=== PATIENT | female | born 1995 | race Caucasian/White ===

== ENCOUNTER 2020-08-10 08:31 | Outpatient (CLI) | payer OTHER ==
[2020-08-11 02:13] LABS: SARS-CoV-2 MS2 Positive; SARS-CoV-2 N Gene Negative; SARS-CoV-2 S Gene Negative; SARS-CoV-2 by NAA Not Detected (NotDetected); SARS-CoV-2 orf1ab Negative
== END 2020-08-10 08:32 | disposition home or self-care (01) ==
LOC: LABBT 08:31
PROVIDERS: ATTEND Urology
DX: Z01.812 Encounter for preprocedural laboratory examination (principal); Z20.828 Contact with and (suspected) exposure to other viral communicable diseases
CPT/HCPCS: 87635; U0003

== ENCOUNTER 2020-08-15 06:31 | Day surgery (SDC) | payer OTHER ==
[2020-08-14 10:29] VITALS: BMI 35.6
[2020-08-15] MEDS ORDERED: Levofloxacin 500 mg/D5W 100 ml Premix Bag ONE (07:39)
[2020-08-15] MEDS ORDERED: Iothalamate Meglumine 60% 50 ML VIAL FS ONE (08:00)
[2020-08-15] MEDS ORDERED: Midazolam HCl 2 mg/2 ml Vial ONE (09:06)
[2020-08-15] MEDS ORDERED: Fentanyl 100 MCG/2 ML VIAL ONE (09:13)
[2020-08-15] MEDS ORDERED: Ketorolac Tromethamine 30 MG/ML VIAL ONE (10:30)
[2020-08-15] MEDS ORDERED: Oxybutynin 5 MG TAB ONE (10:30)
--- NOTE | 2020-08-15 10:41 | RAD ---
EXAM: XR IVP Retrograde PROVIDED CLINICAL HISTORY: Right ureteral stent placement COMPARISON: None FINDINGS: Single spot fluoroscopic image of the abdomen is submitted, not labeled with respect to side. A urete ral stent is noted overlying presumably the right abdomen and pelvis, the proximal coil of which overlies the right renal pelvis and distal coil of which overlies expected location of the urinary bl adder. IMPRESSION: As above.
[2020-08-15] MEDS ORDERED: Lidocaine 1% PF 5 ML VIAL ONE (11:02)
[2020-08-15] MEDS ORDERED: Ondansetron PF 4 MG/2 ML Vial ONE (11:02)
[2020-08-15] MEDS ORDERED: Dexamethasone 20 MG/5 ML VIAL ONE (11:02)
[2020-08-15] MEDS ORDERED: PROPOFOL 200 MG/20 ML VIAL ONE (11:02)
[2020-08-15] MEDS ORDERED: PHENYLEPHRINE-NS 100 MCG/ML 10 ML SYRINGE ONE (11:02)
[2020-08-15] MEDS ORDERED: HYDROcodone/Acetaminophen 5/325 mg Tablet ONE (11:03)
--- NOTE | 2020-08-15 11:59 | OP ---
DATE OF PROCEDURE: 08/15/2020 PREOPERATIVE DIAGNOSES: Right ureteral and renal stones. POSTOPERATIVE DIAGNOSES: Right ureteral and renal stones. PROCEDURES PERFORMED: Right ureteroscopy with manipulation of right ureteral stone, ureteroscopy with laser lithotripsy of renal stone, basket extraction of stone fragments, retrograde pyelogram, intraoperative interpretation of radiologic imaging, and 4.8 x 26 double-J ureteral stent placement. ANESTHESIA: General. COMPLICATIONS: None. ESTIMATED BLOOD LOSS: Minimal. SPECIMEN: Right stone fragments. DESCRIPTION OF PROCEDURE: After informed consent, the patient was taken to the operating room, transferred to the table on her own power. Anesthesia was established. A time-out was performed ensuring the correct patient, site, and procedure. Preoperative antibiotics were administered. She was prepped and draped in the lithotomy position. The rigid ureteroscope was advanced through the urethra into the bladder. The right ureteral orifice was cannulated with a wire, which was passed up to the level of the renal pelvis. The scope was then passed alongside the wire into the ureter, however, a stone was not encountered until the proximal ureter. It seems likely that the wire placement dislodged the stone and irrigation likely pushed this into the proximal ureter. In attempting to access the stone at that point, it migrated back into the renal pelvis. An access sheath was passed over the wire with a curl in the kidney and a curl in the bladder. A retrograde pyelogram was performed through this showing good filling of the proximal ureter and renal pelvis. A flexible ureteroscope was passed through the access sheath into the upper pole, where a stone was found connected to papilla as well as a second loose stone. Both stones were treated with a 273 micron laser fiber, fragmenting them into several small pieces. All these pieces were removed with a 1.9 cm Nitinol basket and passed off together. The collecting system was then re-examined, noting no further stone fragments that required removal. The collecting system was filled with contrast before removing the scope and access sheath, leaving a wire in place. A 4.8 x 26 double-J ureteral stent was passed over the wire with a curl in the kidney and a curl in the bladder under fluoroscopic guidance. Completion images were taken. The strings were taped to her leg for removal after 3 days. Her bladder was drained. She was then awoken from anesthesia, transferred back to her hospital bed, and taken to PACU in stable condition, where she will be discharged home upon recovery. Job ID: [id number]
== END 2020-08-15 11:55 | disposition home or self-care (01) ==
LOC: SDC 06:31
PROVIDERS: ATTEND Urology
PROC: 0T768DZ Dilation of Right Ureter with Intraluminal Device, Via Natural or Artificial Opening Endoscopic (ICD-10-PCS; principal; 2020-08-15)
PROC: 0TC38ZZ Extirpation of Matter from Right Kidney Pelvis, Via Natural or Artificial Opening Endoscopic (ICD-10-PCS; principal; 2020-08-15)
DX: N20.2 Calculus of kidney with calculus of ureter (principal); F90.9 Attention-deficit hyperactivity disorder, unspecified type; Z79.899 Other long term (current) drug therapy; Z88.5 Allergy status to narcotic agent
CPT/HCPCS: 74420; 82365; 88300; J1100; J1885; J1956; J2250; J2405; J2704; J3010